=== PATIENT | female | born 1950 | race Caucasian/White ===

== ENCOUNTER 2017-03-21 05:20 | Day surgery (SDC) | payer OTHER ==
[~2017-03-21 05:20] MED LIST: AMBIEN10 MG PO; ASPIR 8181 MG PO; CATAFLAN PO; CRESTOR40 MG PO; GABAPENTIN400 MG PO; MIRAPEX0.25 MG PO; SOTALOL80 MG PO; TRICOR48 MG PO; XANAX XR0.5 MG PO; ZANTAC150 M3 PO; [UNRECOGNIZED DRUG - OTHER] PO
== END 2017-03-21 13:20 | disposition home or self-care (01) ==
LOC: CIR.AMB 05:20
DX: R15.9 Full incontinence of feces (principal)
CPT/HCPCS: 64581; C1778

== ENCOUNTER 2017-04-04 05:13 | Day surgery (SDC) | payer OTHER | END 2017-04-04 11:45 | disposition home or self-care (01) | LOC: CIR.AMB 05:13 | DX: K62.89 Other specified diseases of anus and rectum (principal); R15.9 Full incontinence of feces | CPT/HCPCS: 64590; 95972; C1767 ==

== ENCOUNTER 2018-05-16 07:58 | Outpatient (CLI) | payer OTHER | END 2018-05-16 07:59 | disposition home or self-care (01) | LOC: SONOGRAMA 07:58 | DX: E04.2 Nontoxic multinodular goiter (principal) ==

== ENCOUNTER 2018-11-13 09:40 | Day surgery (SDC) | payer OTHER | END 2018-11-13 13:05 | disposition home or self-care (01) | LOC: AMB-ENDOS 09:40 | DX: K64.8 Other hemorrhoids (principal); Z12.11 Encounter for screening for malignant neoplasm of colon ==

== ENCOUNTER 2019-03-12 08:02 | Outpatient (CLI) | payer OTHER | END 2019-03-12 08:10 | disposition home or self-care (01) | LOC: LAB 08:02 | DX: N30.21 Other chronic cystitis with hematuria (principal); Z85.048 Personal history of other malignant neoplasm of rectum, rectosigmoid junction, and anus; N32.81 Overactive bladder; R15.9 Full incontinence of feces; Z86.010 Personal history of colon polyps ==